=== PATIENT | male | born 1990 ===

== ENCOUNTER 2019-11-29 16:43 | Emergency (ER) | payer SELFPAY ==
[2019-11-29] MEDS ORDERED: SODIUM CHLORIDE 0.9% 1000 ML 1,000 ML IV ONE (18:00)
[2019-11-29 18:42] LABS: Bilirubin,Urine NEG (Negative); Blood,Urine NEG (Negative); Color,Urine Yellow (Yellow); Mucus,Urine FEW /HPF; Protein,Urine <15 mg/dL mg/dL (Negative)
[2019-11-29 18:50] LABS: Benzodiazepines Screen,Urine PRESUMPTIVE NEGATIVE; Cocaine Screen,Urine PRESUMPTIVE NEGATIVE; Methadone Screen,Urine PRESUMPTIVE NEGATIVE; Opiate Screen,Urine PRESUMPTIVE NEGATIVE
[2019-11-29 19:02] LABS: Amphetamine Screen,Urine PRESUMPTIVE POSITIVE; Cannabinoid Screen,Urine PRESUMPTIVE POSITIVE
[2019-11-29 19:08] LABS: Basophils % (Auto) 0.4 % (0.0-1.8); Eosinophils % (Auto) 0.3 % (0.0-4.3); Hematocrit 40.9 % (35.5-45.6); Hemoglobin 14.3 gm/dl (11.8-15.2); Lymphocytes # (Auto) 1.4 K/mm3 (1.2-5.4); Lymphocytes % (Auto) 38.8 % (13.4-35.0); Mean Corpuscular HGB Conc 35 % (32-34); Mean Corpuscular Volume 93 fl (84-94); Monocytes # (Auto) 0.2 K/mm3 (0.0-0.8); Monocytes % (Auto) 5.3 % (0.0-7.3); Platelet Count 181 K/mm3 (140-440); Red Blood Count 4.41 M/mm3 (3.65-5.03); Red Cell Distribution Width 14.2 % (13.2-15.2)
[2019-11-29 19:29] LABS: Alanine Aminotransferase 12 units/L (7-56); Albumin 4.8 g/dL (3.9-5); BUN/Creatinine Ratio 9; Blood Urea Nitrogen 7 mg/dL (9-20); Calcium 9.5 mg/dL (8.4-10.2); Hemolysis Index 41
--- NOTE | 2019-11-29 19:39 | Emergency Department Report ---
<NAHOMY SHUKLA - Last Filed: 11/29/19 19:35> ED Psych HPI - General Chief Complaint: Altered Mental Status Stated Complaint: AMS Time Seen by Provider: 11/29/19 17:55 Source: EMS Mode of arrival: Ambulatory - History of Present Illness Initial Comments: Patient is a 29-year-old male who is presenting with odd behavior. Patient family states that he seemed "off "and he does abuse drugs. Patient is states he has had chills and a strange feeling but is unable to give any exact details. Patient states he believes he is withdrawing cannot remember the last time he used drugs. He denies vomiting auditory visual hallucinations or homicidal suicidal ideations at this time - Related Data Allergies Allergy/AdvReac Type Severity Reaction Status Date / Time No Known Allergies Allergy Unverified 11/29/19 18:33 ED Review of Systems Comment: All other systems reviewed and negative ED Past Medical Hx - Past Medical History Previous Medical History?: No - Surgical History Past Surgical History?: No - Social History Smoking Status: Current Every Day Smoker Substance Use Type: Marijuana, Methamphetamines ED Physical Exam - General Limitations: No Limitations General appearance: alert, in no apparent distress - Head Head exam: Present: atraumatic, normocephalic - Eye Eye exam: Present: normal appearance - ENT ENT exam: Present: mucous membranes moist - Neck Neck exam: Present: normal inspection - Respiratory Respiratory exam: Present: normal lung sounds bilaterally. Absent: respiratory distress, wheezes, rales - Cardiovascular Cardiovascular Exam: Present: regular rate, normal rhythm. Absent: systolic murmur, diastolic murmur, rubs, gallop - GI/Abdominal GI/Abdominal exam: Present: soft, normal bowel sounds. Absent: distended, tenderness, guarding, rebound - Rectal Rectal exam: Present: deferred - Extremities Exam Extremities exam: Present: normal inspection - Back Exam Back exam: Present: normal inspection - Neurological Exam Neurological exam: Present: alert, oriented X3 - Psychiatric Psychiatric exam: Present: flat affect - Skin Skin exam: Present: warm, dry, intact, normal color. Absent: rash ED Medical Decision Making - Lab Data Result diagrams: 11/29/19 18:29 11/29/19 18:29 Lab Results 11/29/19 11/29/19 11/29/19 Range/Units 18:14 18:14 18:29 WBC 3.6 L (4.5-11.0) K/mm3 RBC 4.41 (3.65-5.03) M/mm3 Hgb 14.3 (11.8-15.2) gm/dl Hct 40.9 (35.5-45.6) % MCV 93 (84-94) fl MCH 32 (28-32) pg MCHC 35 H (32-34) % RDW 14.2 (13.2-15.2) % Plt Count 181 (140-440) K/mm3 Lymph % (Auto) 38.8 H (13.4-35.0) % [place] % (Auto) 5.3 (0.0-7.3) % Eos % (Auto) 0.3 (0.0-4.3) % Baso % (Auto) 0.4 (0.0-1.8) % Lymph # 1.4 (1.2-5.4) K/mm3 [place] # 0.2 (0.0-0.8) K/mm3 Eos # 0.0 (0.0-0.4) K/mm3 Baso # 0.0 (0.0-0.1) K/mm3 Seg Neutrophils % 55.2 (40.0-70.0) % Seg Neutrophils # 2.0 (1.8-7.7) K/mm3 Sodium (137-145) mmol/L Potassium (3.6-5.0) mmol/L Chloride (98-107) mmol/L Carbon Dioxide (22-30) mmol/L Anion Gap mmol/L BUN (9-20) mg/dL Creatinine (0.8-1.5) mg/dL Estimated GFR ml/min BUN/Creatinine Ratio % Glucose (75-100) mg/dL Calcium (8.4-10.2) mg/dL Total Bilirubin (0.1-1.2) mg/dL AST (5-40) units/L ALT (7-56) units/L Alkaline Phosphatase (35-129) units/L Total Protein (6.3-8.2) g/dL Albumin (3.9-5) g/dL Albumin/Globulin Ratio % Urine Color Yellow (Yellow) Urine Turbidity Clear (Clear) Urine pH 6.0 (5.0-7.0) Ur Specific [place] 1.023 (1.003-1.030) Urine Protein <15 mg/dl (Negative) mg/dL Urine Glucose (UA) Neg (Negative) mg/dL Urine Ketones Tr (Negative) mg/dL Urine Blood Neg (Negative) Urine Nitrite Neg (Negative) Urine Bilirubin Neg (Negative) Urine Urobilinogen 2.0 (<2.0) mg/dL Ur Leukocyte Esterase Neg (Negative) Urine WBC (Auto) 37.0 H (0.0-6.0) /HPF Urine RBC (Auto) 1.0 (0.0-6.0) /HPF U Epithel Cells (Auto) < 1.0 (0-13.0) /HPF Urine Mucus Few /HPF Salicylates (2.8-20.0) mg/dL Urine Opiates Screen Presumptive negative Urine Methadone Screen Presumptive negative Acetaminophen (10.0-30.0) ug/mL Ur Barbiturates Screen Presumptive negative Ur Phencyclidine Scrn Presumptive negative Ur Amphetamines Screen Presumptive positive U Benzodiazepines Scrn Presumptive negative Urine Cocaine Screen Presumptive negative U Marijuana (THC) Screen Presumptive positive Drugs of Abuse Note Disclamer Plasma/Serum Alcohol (0-0.07) % 11/29/19 11/29/19 11/29/19 Range/Units 18:29 18:29 18:29 WBC (4.5-11.0) K/mm3 RBC (3.65-5.03) M/mm3 Hgb (11.8-15.2) gm/dl Hct (35.5-45.6) % MCV (84-94) fl MCH (28-32) pg MCHC (32-34) % RDW (13.2-15.2) % Plt Count (140-440) K/mm3 Lymph % (Auto) (13.4-35.0) % [place] % (Auto) (0.0-7.3) % Eos % (Auto) (0.0-4.3) % Baso % (Auto) (0.0-1.8) % Lymph # (1.2-5.4) K/mm3 [place] # (0.0-0.8) K/mm3 Eos # (0.0-0.4) K/mm3 Baso # (0.0-0.1) K/mm3 Seg Neutrophils % (40.0-70.0) % Seg Neutrophils # (1.8-7.7) K/mm3 Sodium 138 (137-145) mmol/L Potassium 3.8 (3.6-5.0) mmol/L Chloride 102.0 (98-107) mmol/L Carbon Dioxide 23 (22-30) mmol/L Anion Gap 17 mmol/L BUN 7 L (9-20) mg/dL Creatinine 0.8 (0.8-1.5) mg/dL Estimated GFR > 60 ml/min BUN/Creatinine Ratio 9 % Glucose 101 H (75-100) mg/dL Calcium 9.5 (8.4-10.2) mg/dL Total Bilirubin 0.40 (0.1-1.2) mg/dL AST 15 (5-40) units/L ALT 12 (7-56) units/L Alkaline Phosphatase 73 (35-129) units/L Total Protein 7.2 (6.3-8.2) g/dL Albumin 4.8 (3.9-5) g/dL Albumin/Globulin Ratio 2.0 % Urine Color (Yellow) Urine Turbidity (Clear) Urine pH (5.0-7.0) Ur Specific [place] (1.003-1.030) Urine Protein (Negative) mg/dL Urine Glucose (UA) (Negative) mg/dL Urine Ketones (Negative) mg/dL Urine Blood (Negative) Urine Nitrite (Negative) Urine Bilirubin (Negative) Urine Urobilinogen (<2.0) mg/dL Ur Leukocyte Esterase (Negative) Urine WBC (Auto) (0.0-6.0) /HPF Urine RBC (Auto) (0.0-6.0) /HPF U Epithel Cells (Auto) (0-13.0) /HPF Urine Mucus /HPF Salicylates < 0.3 L (2.8-20.0) mg/dL Urine Opiates Screen Urine Methadone Screen Acetaminophen < 5.0 L (10.0-30.0) ug/mL Ur Barbiturates Screen Ur Phencyclidine Scrn Ur Amphetamines Screen U Benzodiazepines Scrn Urine Cocaine Screen U Marijuana (THC) Screen Drugs of Abuse Note Plasma/Serum Alcohol (0-0.07) % 11/29/19 Range/Units 18:29 WBC (4.5-11.0) K/mm3 RBC (3.65-5.03) M/mm3 Hgb (11.8-15.2) gm/dl Hct (35.5-45.6) % MCV (84-94) fl MCH (28-32) pg MCHC (32-34) % RDW (13.2-15.2) % Plt Count (140-440) K/mm3 Lymph % (Auto) (13.4-35.0) % [place] % (Auto) (0.0-7.3) % Eos % (Auto) (0.0-4.3) % Baso % (Auto) (0.0-1.8) % Lymph # (1.2-5.4) K/mm3 [place] # (0.0-0.8) K/mm3 Eos # (0.0-0.4) K/mm3 Baso # (0.0-0.1) K/mm3 Seg Neutrophils % (40.0-70.0) % Seg Neutrophils # (1.8-7.7) K/mm3 Sodium (137-145) mmol/L Potassium (3.6-5.0) mmol/L Chloride (98-107) mmol/L Carbon Dioxide (22-30) mmol/L Anion Gap mmol/L BUN (9-20) mg/dL Creatinine (0.8-1.5) mg/dL Estimated GFR ml/min BUN/Creatinine Ratio % Glucose (75-100) mg/dL Calcium (8.4-10.2) mg/dL Total Bilirubin (0.1-1.2) mg/dL AST (5-40) units/L ALT (7-56) units/L Alkaline Phosphatase (35-129) units/L Total Protein (6.3-8.2) g/dL Albumin (3.9-5) g/dL Albumin/Globulin Ratio % Urine Color (Yellow) Urine Turbidity (Clear) Urine pH (5.0-7.0) Ur Specific [place] (1.003-1.030) Urine Protein (Negative) mg/dL Urine Glucose (UA) (Negative) mg/dL Urine Ketones (Negative) mg/dL Urine Blood (Negative) Urine Nitrite (Negative) Urine Bilirubin (Negative) Urine Urobilinogen (<2.0) mg/dL Ur Leukocyte Esterase (Negative) Urine WBC (Auto) (0.0-6.0) /HPF Urine RBC (Auto) (0.0-6.0) /HPF U Epithel Cells (Auto) (0-13.0) /HPF Urine Mucus /HPF Salicylates (2.8-20.0) mg/dL Urine Opiates Screen Urine Methadone Screen Acetaminophen (10.0-30.0) ug/mL Ur Barbiturates Screen Ur Phencyclidine Scrn Ur Amphetamines Screen U Benzodiazepines Scrn Urine Cocaine Screen U Marijuana (THC) Screen Drugs of Abuse Note Plasma/Serum Alcohol < 0.01 (0-0.07) % - Medical Decision Making Patient has methamphetamines on his drug screen. Patient is not having any seizure-like activity and does not appear to be in withdrawal. He does have a flat affect. Patient states he wants to go to a rehab facility. Patient will be evaluated by mental health team. ED Disposition Clinical Impression: Amphetamine abuse, Marijuana abuse, Flat affect, Urethritis, Medical clearance for psychiatric admission Disposition: - TO HOME OR SELFCARE Is pt being admited?: No Condition: Stable Additional Instructions: As per mental health counselor. Referrals: [facility] [Outside] - 3-5 Days [facility] [Outside] - 3-5 Days PRIMARY CARE, [Primary Care Provider] - 3-5 Days Forms: STI Treatment and Prevention Print Language: THAI <TAMELA ELAINE - Last Filed: 11/30/19 21:20> ED Review of Systems ROS: Stated complaint: AMS Other details as noted in HPI ED Course Vital Signs 11/29/19 11/29/19 11/29/19 17:47 18:01 19:01 Temperature 98.6 F Pulse Rate 77 96 H Respiratory 16 18 9 L Rate Blood Pressure 130/83 140/82 Blood Pressure 130/83 [Right] O2 Sat by Pulse 98 100 100 Oximetry 11/29/19 11/29/19 11/29/19 20:00 21:00 22:00 Temperature Pulse Rate 76 75 65 Respiratory 12 13 13 Rate Blood Pressure 131/81 137/86 128/77 Blood Pressure [Right] O2 Sat by Pulse 98 97 99 Oximetry 11/29/19 11/29/19 11/30/19 23:00 23:35 02:35 Temperature 97.8 F 97.8 F Pulse Rate 65 77 70 Respiratory 16 15 14 Rate Blood Pressure 123/73 Blood Pressure 150/88 137/69 [Right] O2 Sat by Pulse 93 98 97 Oximetry 11/30/19 07:39 Temperature 97.9 F Pulse Rate 62 Respiratory 20 Rate Blood Pressure Blood Pressure 127/80 [Right] O2 Sat by Pulse 98 Oximetry ED Medical Decision Making - Lab Data Result diagrams: 11/29/19 18:29 11/29/19 18:29 - Medical Decision Making urine wbc count increased in male under 35yo. Rocephin and azithromycin ordered x 1 to cover for urethritis. Critical care attestation.: If time is entered above; I have spent that time in minutes in the direct care of this critically ill patient, excluding procedure time. ED Disposition Is pt being admited?: No
[2019-11-29] MEDS ORDERED: AZITHROMYCIN 250 MG TAB PO ONE (21:15)
[2019-11-30 07:40] VITALS: BP 127/80
== END 2019-11-30 12:35 | disposition home or self-care (01) ==
LOC: ED 16:43
DX: F19.10 Other psychoactive substance abuse, uncomplicated (principal); F12.10 Cannabis abuse, uncomplicated; N34.2 Other urethritis; F17.200 Nicotine dependence, unspecified, uncomplicated; Z13.30 Encounter for screening examination for mental health and behavioral disorders, unspecified
CPT/HCPCS: 36415; 80053; 80307; 81001; 85025; 87086; 96365; 99285; J0696; J7030; 80320; 96361; G0480

== ENCOUNTER 2020-07-01 00:05 | Observation (INO) | payer OTHER ==
[2020-07-01] MEDS ORDERED: CHARCOAL/SORBITOL SOLUTION 25 GM/120 ML PO ONE (00:15)
[2020-07-01] MEDS ORDERED: SODIUM CHLORIDE 0.9% 1000 ML 1,000 ML IV ONE (00:17)
--- NOTE | 2020-07-01 00:26 | Emergency Department Report ---
History of Present Illness - General Stated Complaint: OVERDOSE Time Seen by Provider: 07/01/20 00:09 Source: patient, EMS - History of Present Illness Initial Comments: 30-year-old male with history of depression, presents to ED following intentional overdose. States, "I tried to kill myself." When asked why, patient states "I have nothing to live for." Patient reports previous suicide attempt approximately 2 years ago. Patient reports overdose at that time also. Patient reportedly took Haldol 5 mg x 20 tabs, atorvastatin 10 mg x 20 tabs, and Lexapro 10 mg x 28 tabs. Patient is currently lethargic. Patient states he took the pills approximately 1-1/2 hours ago. Family reports patient took the pills about 2-1/2 hours ago. Complaint: intentional overdose -: hour(s) (2) Intent: suicide attempt How Overdose Was Discovered: other (unknown) Associated Symptoms: depression Treatments Prior to Arrival: none - Related Data Allergies Allergy/AdvReac Type Severity Reaction Status Date / Time No Known Allergies Allergy Unverified 11/29/19 18:33 ED Review of Systems ROS: Stated complaint: OVERDOSE Other details as noted in HPI Comment: All other systems reviewed and negative Psychiatric: suicidal thoughts ED Past Medical Hx - Social History Smoking Status: Current Every Day Smoker Substance Use Type: Marijuana, Methamphetamines ED Physical Exam - General General appearance: alert, lethargic - Head Head exam: Present: atraumatic, normocephalic - Eye Eye exam: Present: normal appearance, PERRL, EOMI - ENT ENT exam: Present: mucous membranes moist - Neck Neck exam: Present: normal inspection - Respiratory Respiratory exam: Present: normal lung sounds bilaterally. Absent: respiratory distress - Cardiovascular Cardiovascular Exam: Present: regular rate, normal rhythm - GI/Abdominal GI/Abdominal exam: Present: soft. Absent: distended, tenderness - Extremities Exam Extremities exam: Present: normal inspection - Neurological Exam Neurological exam: Present: alert, oriented X3 - Psychiatric Psychiatric exam: Present: depressed, suicidal ideation - Skin Skin exam: Present: warm, dry, intact, normal color ED Course Vital Signs 07/01/20 07/01/20 07/01/20 00:10 00:15 00:16 Temperature Pulse Rate 85 85 84 Respiratory 16 18 22 Rate Blood Pressure 132/78 Blood Pressure 132/78 [Right] O2 Sat by Pulse 97 97 97 Oximetry 07/01/20 07/01/20 07/01/20 00:26 00:27 00:30 Temperature 98.1 F Pulse Rate 83 Respiratory 16 18 Rate Blood Pressure 133/74 Blood Pressure [Right] O2 Sat by Pulse 98 93 Oximetry 07/01/20 07/01/20 07/01/20 00:45 01:00 01:15 Temperature Pulse Rate 82 81 78 Respiratory 16 14 18 Rate Blood Pressure 139/80 139/80 130/75 Blood Pressure [Right] O2 Sat by Pulse 93 97 94 Oximetry 07/01/20 07/01/20 07/01/20 01:30 01:45 02:00 Temperature Pulse Rate 80 82 71 Respiratory 13 15 13 Rate Blood Pressure 137/70 134/79 142/80 Blood Pressure [Right] O2 Sat by Pulse 94 95 95 Oximetry 07/01/20 07/01/20 07/01/20 02:15 02:30 02:45 Temperature Pulse Rate 68 76 75 Respiratory 18 14 15 Rate Blood Pressure 142/80 116/57 116/62 Blood Pressure [Right] O2 Sat by Pulse 95 93 94 Oximetry 07/01/20 07/01/20 07/01/20 03:00 03:15 03:30 Temperature Pulse Rate 80 83 84 Respiratory 12 14 14 Rate Blood Pressure 115/61 130/64 118/58 Blood Pressure [Right] O2 Sat by Pulse 93 92 93 Oximetry 07/01/20 07/01/20 07/01/20 03:45 04:01 04:15 Temperature Pulse Rate 82 81 81 Respiratory 13 17 18 Rate Blood Pressure 115/68 114/58 121/58 Blood Pressure [Right] O2 Sat by Pulse 94 95 94 Oximetry 07/01/20 04:30 Temperature Pulse Rate 82 Respiratory 14 Rate Blood Pressure 117/61 Blood Pressure [Right] O2 Sat by Pulse 93 Oximetry - Reevaluation(s) Reevaluation #1: 07/01/20 01:49 Lab states they are having issues with the machine resulting values for sodium, chloride, and potassium. 07/01/20 03:58 Repeat EKG shows QTc improved from 499 to 470 on current EKG. - Consultations Consultation #1: 07/01/20 00:24 Poison Control contacted. Haldol and Lexapro can cause QTC widening and sedation. Recommend 12-hour observationdue to long-acting lexapro. 07/01/20 02:00 Spoke again with poison control, informed of EKG findings, salicylate/acetaminophen/alcohol levels. Recommend every 3 hour EKGs. Still need electrolyte levels, however our lab is experiencing some trouble with the machine and is unable to results the electrolytes. 07/01/20 04:44 Spoke again with poison control. Gave update on sodium and potassium, and repeat EKG. ED Medical Decision Making - Lab Data Result diagrams: 07/01/20 00:41 07/01/20 00:41 - EKG Data -: EKG Interpreted by Me EKG shows normal: sinus rhythm, axis, QRS complexes, ST-T waves Rate: normal - EKG Data Interpretation: no acute changes, other (prolonged QTc 499) - Medical Decision Making 30-year-old male presents to ED following intentional overdose on Lexapro, Haldol, atorvastatin. Poison control contacted. Recommend 12-hour observation due to long-acting Lexapro. Initial EKG shows QTC of 499. Repeat shows improvement to 470. Poison control recommends every 3 hour EKGs. Unable to assess electrolytes, as lab reports they are machine are currently unable to run the sodium, potassium, and chloride. Vital signs are stable. Patient lethargic but arousable and able to answer questions. Drug screen is positive for benzos, amphetamines, and marijuana. Patient will be admitted to the hospitalist, Dr Spence, due to need for prolonged observation. Hospitalist also aware of issue with the lab. - Differential Diagnosis Overdose, suicidal ideation Critical Care Time: Yes Critical care time in (mins) excluding proc time.: 35 Critical care attestation.: If time is entered above; I have spent that time in minutes in the direct care of this critically ill patient, excluding procedure time. Critical Care Time: 35 min ED Disposition Clinical Impression: Drug abuse, Suicide attempt by substance overdose Disposition: -09 OP ADMIT IP TO THIS HOSP Is pt being admited?: Yes Condition: Stable Referrals: PRIMARY CARE, [Primary Care Provider] - 3-5 Days Time of Disposition: 04:12
[2020-07-01 01:19] LABS: Basophils % (Auto) 0.4 % (0.0-1.8); Eosinophils % (Auto) 0.5 % (0.0-4.3); Lymphocytes # (Auto) 1.3 K/mm3 (1.2-5.4); Lymphocytes % (Auto) 30.2 % (13.4-35.0); Mean Corpuscular HGB Conc 36 % (32-34); Mean Corpuscular Volume 89 fl (84-94); Monocytes # (Auto) 0.4 K/mm3 (0.0-0.8); Monocytes % (Auto) 9.8 % (0.0-7.3); Platelet Count 208 K/mm3 (140-440); Red Blood Count 4.58 M/mm3 (3.65-5.03); Red Cell Distribution Width 13.1 % (13.2-15.2)
[2020-07-01 01:31] LABS: INR 1.1 (0.87-1.13)
[2020-07-01 01:32] LABS: Partial Thromboplastin Time 29.7 Sec. (24.2-36.6)
[2020-07-01 01:40] LABS: Hematocrit 40.6 % (35.5-45.6); Hemoglobin 14.6 gm/dl (11.8-15.2)
[2020-07-01 01:41] LABS: Alanine Aminotransferase 34 units/L (7-56); Albumin 5.2 g/dL (3.9-5); BUN/Creatinine Ratio 23; Bilirubin,Direct 0.2 mg/dL (0-0.2); Blood Urea Nitrogen 18 mg/dL (9-20); Calcium 9.8 mg/dL (8.4-10.2); Hemolysis Index 7
[2020-07-01 03:13] LABS: Bilirubin,Urine NEG (Negative); Blood,Urine NEG (Negative); Color,Urine Yellow (Yellow); Mucus,Urine FEW /HPF; WBC,Urine < 1.0 /HPF (0.0-6.0)
[2020-07-01 03:21] LABS: Amphetamine Screen,Urine PRESUMPTIVE POSITIVE; Benzodiazepines Screen,Urine PRESUMPTIVE POSITIVE; Cannabinoid Screen,Urine PRESUMPTIVE POSITIVE; Cocaine Screen,Urine PRESUMPTIVE NEGATIVE; Methadone Screen,Urine PRESUMPTIVE NEGATIVE; Opiate Screen,Urine PRESUMPTIVE NEGATIVE
[2020-07-01] MEDS ORDERED: MAGNESIUM HYDROXIDE (MOM) ORAL LIQD UDC PO PRN (04:24)
[2020-07-01] MEDS ORDERED: ONDANSETRON 4 MG/2 ML INJ IV PRN (04:24)
[2020-07-01] MEDS ORDERED: ACETAMINOPHEN 325 MG TAB PO PRN (04:24)
--- NOTE | 2020-07-01 04:39 | History and Physical Report ---
History of Present Illness Date of examination: 07/01/20 Date of admission: 07/01/2020 Chief complaint: Suicidal attempt History of present illness: 30-year-old male with known history of depression presenting to the emergency room today with intentional overdose of medication. Patient had taking 20 tablets of 5 mg Haldol, atorvastatin 10 mg 20 tablets and Lexapro 10 mg 20 tablets. Patient indicates that he intended killing himself as he has nothing to live for. Patient has had suicidal attempt about 2 years ago. He denies any fever or chills, no chest pain or shortness of breath, no headache or dizziness, no nausea vomiting and no diarrhea. He denies any homicidal ideation and suicidal ideation at this time. Patient appeared lethargic and drowsy during this exam. Work-up in the emergency room today reveals marijuana, amphetamine, benzodiazepine on the UDS. Patient being admitted for drug overdose with suicidal attempt. Past History Past Medical History: other (Depression) Past Surgical History: No surgical history Social history: smoking (Current daily smoker) Family history: no significant family history Medications and Allergies Allergies Allergy/AdvReac Type Severity Reaction Status Date / Time No Known Allergies Allergy Unverified 11/29/19 18:33 Active Meds: Active Medications Acetaminophen (Tylenol) 650 mg PO Q4H PRN PRN Reason: Pain MILD(1-3)/Fever >100.5/BIGGS Enoxaparin Sodium (Enoxaparin) 40 mg SUB-Q QDAY@2200 LILLIAN; Protocol Sodium Chloride (Nacl 0.9% 1000 Ml) 1,000 mls @ 125 mls/hr IV DIRECT LILLIAN Magnesium Hydroxide (Milk Of Magnesia) 30 ml PO Q4H PRN PRN Reason: Constipation Ondansetron HCl (Zofran) 4 mg IV Q8H PRN PRN Reason: Nausea And Vomiting Sodium Chloride (Sodium Chloride Flush Syringe 10 Ml) 10 ml IV BID LILLIAN Sodium Chloride (Sodium Chloride Flush Syringe 10 Ml) 10 ml IV PRN PRN PRN Reason: LINE FLUSH Review of Systems Constitutional: no fever, no chills Ears, nose, mouth and throat: no nasal congestion, no sore throat Cardiovascular: no chest pain, no palpitations Respiratory: no cough, no shortness of breath Gastrointestinal: no abdominal pain, no nausea, no vomiting, no diarrhea Genitourinary Male: no dysuria, no hematuria, no flank pain Musculoskeletal: no neck pain, no low back pain Integumentary: no rash, no pruritis Neurological: no headaches, no confusion Psychiatric: depression, no anxiety Exam - Constitutional Vitals: Temp Pulse Resp BP Pulse Ox 98.1 F 82 14 117/61 93 07/01/20 00:26 07/01/20 04:30 07/01/20 04:30 07/01/20 04:30 07/01/20 04:30 General appearance: Present: no acute distress, well-nourished - EENT Eyes: Present: PERRL, EOM intact. Absent: scleral icterus ENT: hearing intact, clear oral mucosa, dentition normal - Neck Neck: Present: supple, normal ROM - Respiratory Respiratory effort: normal Respiratory: bilateral: CTA - Cardiovascular Rhythm: regular Heart Sounds: Present: S1 & S2. Absent: gallop, systolic murmur, diastolic murmur, rub - Extremities Extremities: no ischemia, pulses intact, pulses symmetrical, No edema, Full ROM Peripheral Pulses: within normal limits - Abdominal General gastrointestinal: Present: soft, non-tender, non-distended, normal bowel sounds. Absent: mass - Integumentary Integumentary: Present: clear, warm, dry. Absent: rash - Musculoskeletal Musculoskeletal: strength equal bilaterally - Psychiatric Psychiatric: appropriate mood/affect, intact judgment & insight, memory intact, cooperative, other (Appears drowsy) - Neurologic Neurologic: CNII-XII intact, no focal deficits, moves all extremities HEART Score - HEART Score Troponin: Troponin T < 0.010 ng/mL (0.00-0.029) 07/01/20 00:41 Results - Labs CBC & Chem 7: 07/01/20 00:41 07/01/20 00:41 Labs: Abnormal lab results 07/01/20 07/01/20 07/01/20 Range/Units 00:41 00:41 00:41 WBC 4.4 L (4.5-11.0) K/mm3 MCHC 36 H (32-34) % RDW 13.1 L (13.2-15.2) % [place] % (Auto) 9.8 H (0.0-7.3) % Carbon Dioxide 18 L (22-30) mmol/L Albumin 5.2 H (3.9-5) g/dL Ur Specific [place] (1.003-1.030) Salicylates < 0.3 L (2.8-20.0) mg/dL Acetaminophen (10.0-30.0) ug/mL 07/01/20 07/01/20 Range/Units 00:41 02:15 WBC (4.5-11.0) K/mm3 MCHC (32-34) % RDW (13.2-15.2) % [place] % (Auto) (0.0-7.3) % Carbon Dioxide (22-30) mmol/L Albumin (3.9-5) g/dL Ur Specific [place] 1.033 H (1.003-1.030) Salicylates (2.8-20.0) mg/dL Acetaminophen 5.0 L (10.0-30.0) ug/mL Assessment and Plan - Patient Problems (1) Suicide attempt by substance overdose Current Visit: Yes Status: Acute Plan to address problem: Patient admitted and will place on suicide precautions. We will place a consult to mental health for evaluation. (2) Drug abuse Current Visit: Yes Status: Acute Plan to address problem: Urine drug screen reveals some marijuana, amphetamine and benzodiazepine. Patient will be counseled and also will be evaluated by mental health prior to discharge. (3) H/O: depression Current Visit: Yes Status: Acute Plan to address problem: We will await further recommendation from mental health. (4) DVT prophylaxis Current Visit: Yes Status: Acute Plan to address problem: Patient placed on anticoagulation with subcutaneous Lovenox. (5) Full code status Current Visit: Yes Status: Acute
--- NOTE | 2020-07-01 11:55 | Consultation ---
History of Present Illness - Reason for Consult Consult date: 07/01/20 Reason for consult: Suicide attempt - History of Present Psychiatric Illness Teddy Bloom is a 30y/o male patient who presented to the ER after a suicide attempt by taking pills. During my interview with the patient today, he is lying down in bed. He is a/o x 3. He is calm and cooperative. He is polite. The patient says he took some pills to kill himself because "I broke up with my girlfriend." The patient says "I was so depressed over it." The patient verbalizes still feeling depressed and says he has a history of depression. But at present he denies any thoughts or tendencies to commit self harm. The patient states "I'm not suicidal and I feel so stupid for doing that." He says "I regret I did that, ma'am." He says he's attempted suicide x 2 in the past and has had two psych admits. He denies any illicit drug use or alcohol, although his UDS was positive for amphetamines, THC and benzos. He says he has a history of depression. The patient states "but I'm not on any medications for it." He says he "smokes a pack of cigarettes per day." He denies hallucinations of any kind PAST PSYCHIATRIC HISTORY: Diagnoses: Depression Suicide attempts or Self-harm behavior: twice Prior psychiatric hospitalizations: twice Substance Abuse history: Nicotine, denies all other but positive for amphetamines and THC Previous psychiatric medications tried: Denies Outpatient treatment: Denies PAST MEDICAL HISTORY: None reported Family Psychiatric History: None reported or documented SOCIAL HISTORY Marital Status: Single Living Arrangements: with girlfriend Employment Status: employed Access to guns/weapons: Denies Education: 10th grade History of Abuse: Denies Legal History: Denies REVIEW OF SYSTEMS Constitutional: Negative for weight loss ENT: Negative for stridor Respiratory: Negative for cough or hemoptysis All other systems reviewed and are negative MENTAL STATUS EXAMINATION General Appearance and Behavior: Age appropriate, wearing appropriate clothes, fair eye contact, calm andn cooperative Cooperation: Cooperative, participating Psychomotor Behavior: Psychomotor normal Mood: "better" Affect and affective range: Restricted Thought Process: goal directed Thought Content: None Speech: Normal rate, volume and rhythm Suicidal Ideation: Denies Homicidal Ideation: Denies Hallucinations: Denies Delusions: None elicited Impulse Control: Limited Insight and Judgment: Limited insight and judgment Memory/Cognition: Normal Attention: Limited Orientation: Alert Assessment and Plan Major Depressive Disorder Methamphetamine Use Disorder Substance Induced Mood Disorder Noncompliance with other medical treatment and regimen Treatment Plan Start Zoloft 25mg po daily Start Nicotine patch 21mg daily Sitter: Defer to primary Medical: Per primary Disposition: TBD once medically clear. Will follow the patient on the medical floor Will follow. Thank you for this consult. Medications and Allergies Allergies Allergy/AdvReac Type Severity Reaction Status Date / Time No Known Allergies Allergy Unverified 11/29/19 18:33 Home Medications Medication Instructions Recorded Confirmed Last Taken Type AtorvaSTATin [Lipitor] 10 mg PO QHS 07/01/20 07/01/20 07/01/20 History Escitalopram [Lexapro] 10 mg PO DAILY 07/01/20 07/01/20 07/01/20 History haloperidoL [Haloperidol] 5 mg PO DAILY 07/01/20 07/01/20 07/01/20 History Active Meds: Active Medications Acetaminophen (Tylenol) 650 mg PO Q4H PRN PRN Reason: Pain MILD(1-3)/Fever >100.5/BIGGS Enoxaparin Sodium (Enoxaparin) 40 mg SUB-Q QDAY@2200 LILLIAN; Protocol Sodium Chloride (Nacl 0.9% 1000 Ml) 1,000 mls @ 125 mls/hr IV DIRECT LILLIAN Magnesium Hydroxide (Milk Of Magnesia) 30 ml PO Q4H PRN PRN Reason: Constipation Ondansetron HCl (Zofran) 4 mg IV Q8H PRN PRN Reason: Nausea And Vomiting Sodium Chloride (Sodium Chloride Flush Syringe 10 Ml) 10 ml IV BID LILLIAN Sodium Chloride (Sodium Chloride Flush Syringe 10 Ml) 10 ml IV PRN PRN PRN Reason: LINE FLUSH Mental Status Exam - Vital signs Last Vital Signs Temp 98.1 F 07/01/20 00:26 Pulse 80 07/01/20 10:00 Resp 20 07/01/20 10:00 BP 142/79 07/01/20 10:00 Pulse Ox 94 07/01/20 10:00 Results Result Diagrams: 07/01/20 00:41 07/01/20 00:41 Abnormal lab results 07/01/20 07/01/20 07/01/20 Range/Units 00:41 00:41 00:41 WBC 4.4 L (4.5-11.0) K/mm3 MCHC 36 H (32-34) % RDW 13.1 L (13.2-15.2) % [place] % (Auto) 9.8 H (0.0-7.3) % Sodium 136 L (137-145) mmol/L Carbon Dioxide 18 L (22-30) mmol/L Albumin 5.2 H (3.9-5) g/dL Ur Specific [place] (1.003-1.030) Salicylates < 0.3 L (2.8-20.0) mg/dL Acetaminophen (10.0-30.0) ug/mL 07/01/20 07/01/20 Range/Units 00:41 02:15 WBC (4.5-11.0) K/mm3 MCHC (32-34) % RDW (13.2-15.2) % [place] % (Auto) (0.0-7.3) % Sodium (137-145) mmol/L Carbon Dioxide (22-30) mmol/L Albumin (3.9-5) g/dL Ur Specific [place] 1.033 H (1.003-1.030) Salicylates (2.8-20.0) mg/dL Acetaminophen 5.0 L (10.0-30.0) ug/mL All other labs normal.
[2020-07-01] MEDS ORDERED: ROCURONIUM 50 MG/5 ML INJ IV ONE ×2 (13:05→14:48)
[2020-07-01] MEDS ORDERED: LIDOCAINE MPF (2%) 20 MG/1 ML VIAL 5 ML ONE (13:05)
[2020-07-01] MEDS ORDERED: fentaNYL 100 MCG/2 ML INJ ONE (13:06)
[2020-07-01] MEDS ORDERED: propofoL 200 MG/20 ML VIAL IV ONE (13:06)
[2020-07-01] MEDS ORDERED: KETAMINE/STERILE WATER 50 MG/ML SYRINGE ONE (13:56)
[2020-07-01] MEDS ORDERED: LACTATED RINGERS 1,000 ML ONE (14:48)
[2020-07-01] MEDS ORDERED: ePHEDrine SULFATE 50 MG/1 ML INJ ONE (15:03)
[2020-07-01] MEDS: NICOTINE 21 MG/24 HR PATCH TD SCH (15:54)
[2020-07-01] MEDS: SERTRALINE 25 MG TAB PO SCH (15:54)
--- NOTE | 2020-07-01 16:07 | Discharge Summary ---
Providers - Providers Date of Admission: 07/01/20 04:15 Date of discharge: 07/01/20 Attending physician: JAH TRIPLETT 07/01/20 04:34 Consult to Mental Health [CONS] Routine Reason For Exam: suicidal attempt Primary care physician: [facility] Hospitalization Condition: Stable Hospital course: 30-year-old male with known history of depression presenting to the emergency room today with intentional overdose of medication. Patient had taking 20 tablets of 5 mg Haldol, atorvastatin 10 mg 20 tablets and Lexapro 10 mg 20 tablets. Patient indicates that he intended killing himself as he has nothing to live for. Patient has had suicidal attempt about 2 years ago. He denies any fever or chills, no chest pain or shortness of breath, no headache or dizziness, no nausea vomiting and no diarrhea. He denies any homicidal ideation and suicidal ideation at this time. Patient appeared lethargic and drowsy during this exam. Work-up in the emergency room today reveals marijuana, amphetamine, benzodiazepine on the UDS. Patient being admitted for drug overdose with suicidal attempt. consult Assessment and Plan Major Depressive Disorder Methamphetamine Use Disorder Substance Induced Mood Disorder Noncompliance with other medical treatment and regimen Treatment Plan Start Zoloft 25mg po daily Start Nicotine patch 21mg daily Medically stable No suicidal thoughts orintent Counselled Sitter: Defer to primary Medical: Per primary Disposition: TBD once medically clear. Will follow the patient on the medical floor Will follow. Thank you for this consult. Counselled Stable for d/c Disposition: DC-01 TO HOME OR SELFCARE - Discharge Diagnoses (1) Drug abuse Status: Acute (2) H/O: depression Status: Acute (3) Suicide attempt by substance overdose Status: Acute (4) DVT prophylaxis Status: Acute Core Measure Documentation - Palliative Care Palliative Care/ Comfort Measures: Not Applicable - Core Measures Any of the following diagnoses?: none Exam - Constitutional Vitals: Temp Pulse Resp BP Pulse Ox 98.1 F 76 19 122/72 95 07/01/20 00:26 07/01/20 11:30 07/01/20 11:30 07/01/20 11:30 07/01/20 11:30 General appearance: Present: no acute distress, well-nourished - EENT Eyes: Present: PERRL ENT: hearing intact, clear oral mucosa - Neck Neck: Present: supple, normal ROM - Respiratory Respiratory effort: normal Respiratory: bilateral: CTA - Cardiovascular Heart rate: 76 Rhythm: regular Heart Sounds: Present: S1 & S2. Absent: rub, click - Extremities Extremities: pulses symmetrical, No edema Peripheral Pulses: within normal limits - Abdominal General gastrointestinal: Present: soft, non-tender, non-distended, normal bowel sounds Male genitourinary: Present: normal - Integumentary Integumentary: Present: clear, warm, dry - Musculoskeletal Musculoskeletal: gait normal, strength equal bilaterally - Psychiatric Psychiatric: appropriate mood/affect, intact judgment & insight - Neurologic Neurologic: CNII-XII intact, moves all extremities Plan Activity: no restrictions Diet: regular Follow up with: PRIMARY CAREMD [Primary Care Provider] - 3-5 Days MARYANN OLIVA MD [Staff Physician] - 7 Days
[2020-07-01] MEDS ORDERED: HYDROmorphone 1 MG/1 ML INJ ONE (16:15)
[2020-07-01] MEDS ORDERED: diphenhydrAMINE 50 MG/ML VIAL ONE (16:57)
[2020-07-01] MEDS ORDERED: EPINEPHRINE IV STA (17:02)
[2020-07-01] MEDS ORDERED: SODIUM CHLORIDE 0.9% IV STA (17:02)
[2020-07-01] MEDS ORDERED: EPINEPHrine/PF 1 MG/1 ML INJ IV ONE (17:28)
[2020-07-01] MEDS ORDERED: methylPREDNISolone Sod Succinate 40 MG/1 ML INJ IV ONE (17:30)
--- NOTE | 2020-07-01 17:34 | Event Note ---
Date: 07/01/20 A rapid response was called. I presented the patient's bedside. Patient was found to be diaphoretic with skin eruption consistent with a fixed drug reaction versus delayed hypersensitivity. Patient treated with IV epinephrine 1 mg IV x1. Patient also treated with IV fluid resuscitation therapy, IV steroid therapy, neuro check, seizure precautions, aspiration precautions. Patient also had one large episode of projectile vomiting. Patient medically stabilized. Care plan discussed with charge nurse.
[2020-07-01] MEDS: SODIUM CHLORIDE 0.9% 1000 ML 1,000 ML IV SCH (17:44)
[2020-07-01] MEDS: ENOXAPARIN 40 MG/0.4 ML INJ SUB-Q SCH (21:35)
[2020-07-02] MEDS: SODIUM CHLORIDE 0.9% 1000 ML 1,000 ML IV SCH ×3 (01:34→17:36)
--- NOTE | 2020-07-02 07:27 | Progress Note ---
Subjective - Reason for Consult Consult date: 07/02/20 Reason for consult: suicide attempt - Chief Complaint Chief complaint: During my interview with the patient today, he is lying in bed awake. The patient is oriented x 3. He is calm and cooperative. He is polite. The patient is still expressing regret that he took pills. He says, "I just feel so stupid for trying to do that to myself. That won't happen again." He denies SI/HI at this time. He also denies any fear of hurting himself. The patient denies any hallucinations of any kind. He express feeling "a lot better." REVIEW OF SYSTEMS Constitutional: Negative for weight loss ENT: Negative for stridor Respiratory: Negative for cough or hemoptysis All other systems reviewed and are negative MENTAL STATUS EXAMINATION General Appearance and Behavior: Age appropriate, wearing appropriate clothes, fair eye contact, calm and cooperative Cooperation: Cooperative, participating Psychomotor Behavior: Psychomotor normal Mood: "a lot better" Affect and affective range: Restricted Thought Process: goal directed Thought Content: None Speech: Normal rate, volume and rhythm Suicidal Ideation: Denies Homicidal Ideation: Denies Hallucinations: Denies Delusions: None elicited Impulse Control: Limited Insight and Judgment: Limited insight and judgment Memory/Cognition: Normal Attention: Limited Orientation: Alert Assessment and Plan Major Depressive Disorder Methamphetamine Use Disorder Substance Induced Mood Disorder Noncompliance with other medical treatment and regimen Treatment Plan Zoloft 25mg po daily Nicotine patch 21mg daily Sitter: Defer to primary Medical: Per primary Disposition: TBD, once medically clear. Although the patient has consistently denies SI at present, will continue to monitor closely being that he had a recent attempt. Will follow. Thank you for this consult. Mental Status Exam - Vital signs Last Vital Signs Temp 97.8 F 07/02/20 03:44 Pulse 74 07/02/20 03:44 Resp 20 07/02/20 03:44 BP 109/54 07/02/20 03:44 Pulse Ox 99 07/02/20 03:44
[2020-07-02 07:42] LABS: Basophils % (Auto) 0.4 % (0.0-1.8); Eosinophils % (Auto) 0.1 % (0.0-4.3); Hematocrit 35.5 % (35.5-45.6); Hemoglobin 12.2 gm/dl (11.8-15.2); Lymphocytes # (Auto) 1.3 K/mm3 (1.2-5.4); Lymphocytes % (Auto) 26.7 % (13.4-35.0); Mean Corpuscular HGB Conc 35 % (32-34); Mean Corpuscular Volume 91 fl (84-94); Monocytes # (Auto) 0.2 K/mm3 (0.0-0.8); Monocytes % (Auto) 4.8 % (0.0-7.3); Platelet Count 198 K/mm3 (140-440); Red Cell Distribution Width 13.2 % (13.2-15.2)
[2020-07-02 07:49] LABS: INR 1.09 (0.87-1.13)
[2020-07-02 07:51] LABS: Blood Urea Nitrogen 10 mg/dL (9-20); Calcium 8.8 mg/dL (8.4-10.2); Hemolysis Index 6
[2020-07-02 08:00] LABS: BUN/Creatinine Ratio 14
[2020-07-02] MEDS: SERTRALINE 25 MG TAB PO SCH (10:09)
[2020-07-02] MEDS: NICOTINE 21 MG/24 HR PATCH TD SCH (10:09)
[2020-07-02] MEDS ORDERED: LORazepam 2 MG/ML VIAL IV PRN (16:16)
--- NOTE | 2020-07-02 16:26 | Progress Note ---
Assessment and Plan Assessment and Plan Major Depressive Disorder Methamphetamine Use Disorder Substance Induced Mood Disorder Noncompliance with other medical treatment and regimen Treatment Plan Started on Zoloft 25mg po daily Start Nicotine patch 21mg daily Medically stable No suicidal thoughts orintent Stable for d/c per psychiatry Disposition: DC-01 TO HOME OR SELFCARE - Discharge Diagnoses (1) Drug abuse Status: Acute (2) H/O: depression Status: Acute (3) Suicide attempt by substance overdose Status: Acute (4) DVT prophylaxis Status: Acute - Patient Problems (1) Drug abuse Current Visit: Yes Status: Acute (2) H/O: depression Current Visit: Yes Status: Acute (3) Suicide attempt by substance overdose Current Visit: Yes Status: Acute (4) DVT prophylaxis Current Visit: Yes Status: Acute Subjective Date of service: 07/01/20 Principal diagnosis: Severe anxiety reaction and allergic reaction Interval history: 30-year-old male with known history of depression presenting to the emergency room today with intentional overdose of medication. Patient had taking 20 tablets of 5 mg Haldol, atorvastatin 10 mg 20 tablets and Lexapro 10 mg 20 tablets. Patient indicates that he intended killing himself as he has nothing to live for. Patient has had suicidal attempt about 2 years ago. He denies any fever or chills, no chest pain or shortness of breath, no headache or dizziness, no nausea vomiting and no diarrhea. He denies any homicidal ideation and suicidal ideation at this time. Patient appeared lethargic and drowsy during this exam. Work-up in the emergency room today reveals marijuana, amphetamine, benzodiazepine on the UDS. Patient being admitted for drug overdose with suicidal attempt. MH consult Objective - Constitutional Vitals: Vital Signs - 12hr 07/02/20 08:54 Temperature 98.0 F Pulse Rate 62 Respiratory 18 Rate Blood Pressure 129/66 O2 Sat by Pulse 97 Oximetry General appearance: Present: no acute distress, well-nourished - EENT Eyes: PERRL, EOM intact ENT: hearing intact, clear oral mucosa Ears: bilateral: normal - Neck Neck: supple, normal ROM - Respiratory Respiratory effort: normal Respiratory: bilateral: CTA - Breasts Breasts: normal - Cardiovascular Heart rate: 78 Rhythm: regular Heart Sounds: Present: S1 & S2. Absent: gallop, rub Extremities: pulses intact, No edema, normal color, Full ROM - Gastrointestinal General gastrointestinal: Present: soft, non-tender, non-distended, normal bowel sounds - Genitourinary Male genitourinary: normal - Integumentary Integumentary: clear, warm, dry - Musculoskeletal Musculoskeletal: 1, strength equal bilaterally - Neurologic Neurologic: moves all extremities - Psychiatric Psychiatric: memory intact, appropriate mood/affect, intact judgment & insight - Labs CBC & Chem 7: 07/02/20 06:54 07/02/20 06:54 Labs: Abnormal lab results 07/01/20 07/02/20 07/02/20 Range/Units 16:46 06:54 06:54 MCHC 35 H (32-34) % Sodium 136 L (137-145) mmol/L Creatinine 0.7 L (0.8-1.3) mg/dL Glucose 109 H (75-100) mg/dL POC Glucose 164 H (70-105) mg/dL HEART Score - HEART Score Troponin: Troponin T < 0.010 ng/mL (0.00-0.029) 07/01/20 00:41
--- NOTE | 2020-07-02 16:27 | Progress Note ---
Assessment and Plan Assessment and Plan Major Depressive Disorder Methamphetamine Use Disorder Substance Induced Mood Disorder Noncompliance with other medical treatment and regimen Treatment Plan Started on Zoloft 25mg po daily Start Nicotine patch 21mg daily Medically stable No suicidal thoughts orintent Stable for d/c per psychiatry Disposition: DC-01 TO HOME OR SELFCARE - Discharge Diagnoses (1) Drug abuse Status: Acute (2) H/O: depression Status: Acute (3) Suicide attempt by substance overdose Status: Acute (4) DVT prophylaxis Status: Acute - Patient Problems (1) Drug abuse Current Visit: Yes Status: Acute (2) H/O: depression Current Visit: Yes Status: Acute (3) Suicide attempt by substance overdose Current Visit: Yes Status: Acute (4) DVT prophylaxis Current Visit: Yes Status: Acute Subjective Date of service: 07/02/20 Principal diagnosis: Acute anxiety reaction, drug overdose, Interval history: 30-year-old male with known history of depression presenting to the emergency room today with intentional overdose of medication. Patient had taking 20 tablets of 5 mg Haldol, atorvastatin 10 mg 20 tablets and Lexapro 10 mg 20 tablets. Patient indicates that he intended killing himself as he has nothing to live for. Patient has had suicidal attempt about 2 years ago. He denies any fever or chills, no chest pain or shortness of breath, no headache or dizziness, no nausea vomiting and no diarrhea. He denies any homicidal ideation and suicidal ideation at this time. Patient appeared lethargic and drowsy during this exam. Work-up in the emergency room today reveals marijuana, amphetamine, be nzodiazepine on the UDS. Patient being admitted for drug overdose with suicidal attempt. Severe anxiety reaction yesterday Objective - Constitutional Vitals: Vital Signs - 12hr 07/02/20 08:54 Temperature 98.0 F Pulse Rate 62 Respiratory 18 Rate Blood Pressure 129/66 O2 Sat by Pulse 97 Oximetry General appearance: Present: no acute distress, well-nourished - EENT Eyes: PERRL, EOM intact ENT: hearing intact, clear oral mucosa Ears: bilateral: normal - Neck Neck: supple, normal ROM - Respiratory Respiratory effort: normal Respiratory: bilateral: CTA - Breasts Breasts: normal - Cardiovascular Heart rate: 78 Rhythm: regular Heart Sounds: Present: S1 & S2. Absent: gallop, rub Extremities: pulses intact, No edema, normal color, Full ROM - Gastrointestinal General gastrointestinal: Present: soft, non-tender, non-distended, normal bowel sounds - Genitourinary Male genitourinary: normal - Integumentary Integumentary: clear, warm, dry - Musculoskeletal Musculoskeletal: 1, strength equal bilaterally - Neurologic Neurologic: moves all extremities - Psychiatric Psychiatric: memory intact, appropriate mood/affect, intact judgment & insight - Labs CBC & Chem 7: 07/02/20 06:54 07/02/20 06:54 Labs: Abnormal lab results 07/01/20 07/02/20 07/02/20 Range/Units 16:46 06:54 06:54 MCHC 35 H (32-34) % Sodium 136 L (137-145) mmol/L Creatinine 0.7 L (0.8-1.3) mg/dL Glucose 109 H (75-100) mg/dL POC Glucose 164 H (70-105) mg/dL HEART Score - HEART Score Troponin: Troponin T < 0.010 ng/mL (0.00-0.029) 07/01/20 00:41
[2020-07-02] MEDS: ENOXAPARIN 40 MG/0.4 ML INJ SUB-Q SCH (21:58)
[2020-07-03] MEDS: SODIUM CHLORIDE 0.9% 1000 ML 1,000 ML IV SCH ×2 (02:03→10:50)
--- NOTE | 2020-07-03 08:48 | Progress Note ---
Subjective - Reason for Consult Consult date: 07/03/20 Reason for consult: MHE Requesting physician: FRANSISCA LUCIANO - Chief Complaint Chief complaint: Psych progress In my interview with the patient this morning, the patient reports mood as sad but denies suicidal thoughts today, says he does not feel like killing himself because that was a stupid thing that he did but sad because when thinking about relationship with his ex-girlfriend who broke up with him he felt he could have treated her better now looking back. Patient says she knows he is in the hospital and has not called. Patient reports the meds he took were from when he was admitted to rehab for meth use long time ago and does not use meth anymore but his UDS was positive for meth. Appetite and sleep was good. Patient denies current S, HI, AH, VH, and contracts to ask the staff for help if any of these symptoms increase REVIEW OF SYSTEMS Constitutional: Negative for weight loss ENT: Negative for stridor Respiratory: Negative for cough or hemoptysis All other systems reviewed and are negative MENTAL STATUS EXAMINATION General Appearance and Behavior: Age appropriate, wearing appropriate clothes, f air eye contact, calm and cooperative Cooperation: Cooperative, participating Psychomotor Behavior: Psychomotor normal Mood: "a lot better" Affect and affective range: Restricted Thought Process: goal directed Thought Content: None Speech: Normal rate, volume and rhythm Suicidal Ideation: Denies Homicidal Ideation: Denies Hallucinations: Denies Delusions: None elicited Impulse Control: Limited Insight and Judgment: Limited insight and judgment Memory/Cognition: Normal Attention: Limited Orientation: Alert Assessment and Plan Major Depressive Disorder Methamphetamine Use Disorder Substance Induced Mood Disorder Noncompliance with other medical treatment and regimen Treatment Plan Who would have putting patient back on any antipsychotic medication or depression medication at this moment, strongly recommend outpatient counseling due to current relationship issues and patient should follow up with a psychiatrist to determine psychopharmacologic initiation of medication. Risks, benefits and alternatives of medications discussed with the patient, questions answered and consent obtained from patient. PSYCHOTHERAPY: Supportive psychotherapy provided MEDICAL: Per primary team DELIRIUM PRECAUTIONS: Please re-orient patient frequently, keep lights on during the day, and minimize benzodiazepines and opiates as these medications could worsen patient's confusion. CORN PICKER: DISPOSITION: Do Not Recommend acute inpatient psychiatric hospitalization at this time, LEGAL STATUS: [id number] rescinded FOLLOW-UP: Will sign off Thank you for the consult. Please contact with any questions and/or concerns. Mental Status Exam - Vital signs Last Vital Signs Temp 98.2 F 07/03/20 05:00 Pulse 70 07/03/20 05:00 Resp 20 07/03/20 05:00 BP 129/75 07/03/20 05:00 Pulse Ox 99 07/03/20 05:00
[2020-07-03 08:56] VITALS: BP 133/71
[2020-07-03] MEDS: SERTRALINE 25 MG TAB PO SCH (09:22)
[2020-07-03] MEDS: NICOTINE 21 MG/24 HR PATCH TD SCH (09:22)
--- NOTE | 2020-07-03 16:03 | Progress Note ---
Assessment and Plan - Patient Problems (1) Drug abuse Current Visit: Yes Status: Acute (2) H/O: depression Current Visit: Yes Status: Acute (3) Suicide attempt by substance overdose Current Visit: Yes Status: Acute (4) DVT prophylaxis Current Visit: Yes Status: Acute Subjective Date of service: 07/03/20 Objective - Constitutional Vitals: Vital Signs - 12hr 07/03/20 07/03/20 05:00 08:56 Temperature 98.2 F 98.1 F Pulse Rate 70 84 Respiratory 20 18 Rate Blood Pressure 129/75 133/71 O2 Sat by Pulse 99 98 Oximetry General appearance: Present: no acute distress, well-nourished - EENT Eyes: PERRL, EOM intact ENT: hearing intact, clear oral mucosa Ears: bilateral: normal - Neck Neck: supple, normal ROM - Respiratory Respiratory effort: normal Respiratory: bilateral: CTA - Breasts Breasts: normal - Cardiovascular Rhythm: regular Heart Sounds: Present: S1 & S2. Absent: gallop, rub Extremities: pulses intact, No edema, normal color, Full ROM - Gastrointestinal General gastrointestinal: Present: soft, non-tender, non-distended, normal bowel sounds - Genitourinary Male genitourinary: normal - Integumentary Integumentary: clear, warm, dry - Musculoskeletal Musculoskeletal: 1, strength equal bilaterally - Neurologic Neurologic: moves all extremities - Psychiatric Psychiatric: memory intact, appropriate mood/affect, intact judgment & insight - Labs CBC & Chem 7: 07/02/20 06:54 07/02/20 06:54 HEART Score - HEART Score Troponin: Troponin T < 0.010 ng/mL (0.00-0.029) 07/01/20 00:41
--- NOTE | 2020-07-03 16:11 | Discharge Summary ---
Providers - Providers Date of Admission: 07/01/20 04:15 Date of discharge: 07/03/20 Attending physician: JAH TRIPLETT 07/01/20 04:34 Consult to Mental Health [CONS] Routine Reason For Exam: suicidal attempt Primary care physician: CRAYON PAINTER Hospitalization Condition: Stable Hospital course: Hospitalization Condition: Stable Hospital course: 30-year-old male with known history of depression presenting to the emergency room today with intentional overdose of medication. Patient had taking 20 tablets of 5 mg Haldol, atorvastatin 10 mg 20 tablets and Lexapro 10 mg 20 tablets. Patient indicates that he intended killing himself as he has nothing to live for. Patient has had suicidal attempt about 2 years ago. He denies any fever or chills, no chest pain or shortness of breath, no headache or dizziness, no nausea vomiting and no diarrhea. He denies any homicidal ideation and suicidal ideation at this time. Patient appeared lethargic and drowsy during this exam. Work-up in the emergency room today reveals marijuana, amphetamine, benzodiazepine on the UDS. Patient being admitted for drug overdose with suicidal attempt. consult Assessment and Plan Major Depressive Disorder Methamphetamine Use Disorder Substance Induced Mood Disorder Noncompliance with other medical treatment and regimen Treatment Plan Start Zoloft 25mg po daily Start Nicotine patch 21mg daily Medically stable No suicidal thoughts orintent Counselled Sitter: Defer to primary Medical: Per primary Disposition: TBD once medically clear. Will follow the patient on the medical floor Will follow. Thank you for this consult. Counselled Stable for d/c from psychiatric and medical standpoint Disposition: DC-01 TO HOME OR SELFCARE No further anxiety. Reactions - Discharge Diagnoses (1) Drug abuse Status: Acute (2) H/O: depression Status: Acute (3) Suicide attempt by substance overdose Status: Acute 4)severe anxiety reaction Ativan 0.5 mg 3 times a day as needed for 10 days Disposition: DC-01 TO HOME OR SELFCARE - Discharge Diagnoses (1) Drug abuse Status: Acute (2) H/O: depression Status: Acute (3) Suicide attempt by substance overdose Status: Acute (4) DVT prophylaxis Status: Acute (5) Anxiety as acute reaction to exceptional stress Status: Acute Comment: Patient being discharged on Ativan 0.5 every 6 hours as needed Core Measure Documentation - Palliative Care Palliative Care/ Comfort Measures: Not Applicable - Core Measures Any of the following diagnoses?: none Exam - Constitutional Vitals: Temp Pulse Resp BP Pulse Ox 98.1 F 84 18 133/71 98 07/03/20 08:56 07/03/20 08:56 07/03/20 08:56 07/03/20 08:56 07/03/20 08:56 General appearance: Present: no acute distress, well-nourished - EENT Eyes: Present: PERRL ENT: hearing intact, clear oral mucosa - Neck Neck: Present: supple, normal ROM - Respiratory Respiratory effort: normal Respiratory: bilateral: CTA - Cardiovascular Heart rate: 78 Rhythm: regular Heart Sounds: Present: S1 & S2. Absent: rub, click - Extremities Extremities: pulses symmetrical, No edema Peripheral Pulses: within normal limits - Abdominal General gastrointestinal: Present: soft, non-tender, non-distended, normal bowel sounds Male genitourinary: Present: normal - Integumentary Integumentary: Present: clear, warm, dry - Musculoskeletal Musculoskeletal: gait normal, strength equal bilaterally - Psychiatric Psychiatric: appropriate mood/affect, intact judgment & insight - Neurologic Neurologic: CNII-XII intact, moves all extremities Plan Activity: no restrictions Diet: regular Follow up with: MARYANN OLIVA MD [Staff Physician] - 7 Days PRIMARY CARE, [Primary Care Provider] - 3-5 Days Prescriptions: Nicotine [Habitrol] 21 mg TD DAILY #30 patch Sertraline [Zoloft] 25 mg PO QDAY #30 tab Sertraline [Zoloft] 25 mg PO QDAY #30 tab
== END 2020-07-03 17:16 | disposition home or self-care (01) ==
LOC: ED 00:05 → 4A 04:15
PROVIDERS: ADMIT Internal Medicine Geriatric Medicine; ATTEND Internal Medicine
DX: T65.92XA Toxic effect of unspecified substance, intentional self-harm, initial encounter (principal); F19.10 Other psychoactive substance abuse, uncomplicated; R45.851 Suicidal ideations; F32.9 Major depressive disorder, single episode, unspecified; F17.210 Nicotine dependence, cigarettes, uncomplicated; F15.14 Other stimulant abuse with stimulant-induced mood disorder; F41.9 Anxiety disorder, unspecified; Z79.899 Other long term (current) drug therapy
CPT/HCPCS: 36415; 80048; 80076; 80307; 81001; 82962; 83735; 84484; 85025; 85610; 85730; 93005; 96361; 96372; 96374; 96375; 99291; 99406; G0378; J0171; J1200; J1650; J2060; J2920; J7030; 80320; G0480; J1170; J2704; J3010; J3490; J7120